=== PATIENT | female | born 1970 | race Caucasian/White ===

== ENCOUNTER → 2017-11-10 | Outpatient (CLI) | payer BC ==
--- NOTE | 2017-11-10 16:58 | Diagnostic Imaging Report ---
EXAMINATION: Three views of the right ankle. INDICATION: Right ankle pain. FINDINGS: No fracture, dislocation or radiopaque foreign body. Ankle mortise is normal in configuration. There is mild lateral soft tissue swelling just lower than the ankle joint level. There is also spur formation at the Achilles tendon insertion site. IMPRESSION: No fracture seen. Lateral soft tissue swelling. Dictated by: Dictated on workstation # [id number]
--- NOTE | 2017-11-10 17:03 | Diagnostic Imaging Report ---
Three views of the right foot. INDICATION: Fall. FINDINGS: There is no fracture, dislocation, or radiopaque foreign body. There is spurring seen at the Achilles tendon insertion site on the calcaneus. IMPRESSION: No fracture seen. Dictated by: Dictated on workstation # [id number]
--- NOTE | 2017-11-10 17:05 | Diagnostic Imaging Report ---
Three views of the right knee. INDICATION: Fall. FINDINGS: No fracture, dislocation, or radiopaque foreign body is seen. No suprapatellar effusion is noted. IMPRESSION: Unremarkable exam. Dictated by: Dictated on workstation # [id number]
== END ==
LOC: RAD 14:34
PROVIDERS: ATTEND Nurse Practitioner Family
DX: M25.471 Effusion, right ankle (principal); M25.561 Pain in right knee; M25.571 Pain in right ankle and joints of right foot; W19.XXXA Unspecified fall, initial encounter
CPT/HCPCS: 73562; 73610; 73630